=== PATIENT | female | born 1990 | race Caucasian/White ===

== ENCOUNTER 2016-12-08 18:37 | Emergency (ER) | payer SELFPAY ==
[2016-12-08 19:30] LABS: URINE BILIRUBIN NEGATIVE (NEGATIVE); URINE BLOOD MODERATE (NEGATIVE); URINE COLOR YELLOW; URINE GLUCOSE (UA) NEGATIVE (NEGATIVE); URINE KETONE NEGATIVE (NEGATIVE); URINE LEUKOCYTE ESTERASE MODERATE (NEGATIVE); URINE NITRITE POSITIVE (NEGATIVE); URINE PROTEIN NEGATIVE (NEGATIVE); URINE UROBILINOGEN 0.2 E.U./dL (0.20 - 1.00)
[2016-12-08 19:34] LABS: URINE APPEARANCE CLOUDY
[2016-12-08 19:35] LABS: URINE BACTERIA 3+
[2016-12-08] MEDS ORDERED: KETOROLAC 30 MG/ML VIAL IVP ONE (19:41)
[2016-12-08] MEDS ORDERED: 0.9 % SODIUM CHLORIDE 1,000 ML BAG IV ONE (19:41)
[2016-12-08] MEDS ORDERED: ONDANSETRON HCL IV 4 MG/2 ML VIAL IV ONE (19:41)
[2016-12-08 20:09] LABS: BASO % 0.1 % (0-6); EOS % 3.3 % (0-6); GRAN % 72.7 % (47-80); HEMATOCRIT 43.9 % (35.0-47.0); HEMOGLOBIN 14.4 gm/dl (11.6-16.0); LYMPH % 17.4 % (16-45); MEAN CELL VOLUME 91.5 fl (81-97); MEAN CORPUSCULAR HGB CONC 32.8 g/dl (32-36); MEAN PLATELET VOLUME 10.7 fl (7.4-10.4); MONO % 6.5 % (0-9); PLATELET COUNT 177 K/uL (130-400); RED CELL DISTRIBUTION WIDTH 13.7 % (11.5-14.5); WHITE BLOOD COUNT W/O DIFF 8.9 K/uL (4.2-12.2)
[2016-12-08] MEDS ORDERED: CIPROFLOXACIN LACTATE/D5W 400 MG/200 ML BAG IVPB ONE (20:12)
[2016-12-08 20:20] LABS: ALB/GLOB RATIO 1.2 (1.1-1.8); ALKALINE PHOSPHATASE 79 U/L (38-126); ALT/SGPT 26 U/L (9-52); AST/SGOT 15 U/L (14-36); BILIRUBIN,TOTAL 0.58 mg/dL (0.2-1.3); BLOOD UREA NITROGEN 7 mg/dL (7-17); CREATININE 0.9 mg/dL (0.52-1.04); EST GLOMERULAR FILTRATION RATE > 60 ml/min; GLUCOSE,RANDOM 95 mg/dL (70-110); TOTAL PROTEIN 7.4 gm/dL (6.3-8.2)
[2016-12-08] MEDS ORDERED: HYDROMORPHONE HCL 1 MG/ML CPJ IVP ONE (20:43)
--- NOTE | 2016-12-08 22:08 | Emergency Department Record ---
History of Present Illness - General Chief complaint: Vomiting Stated complaint: VOMITING,PAIN WHEN URINATING Time Seen by Provider: 12/08/16 19:35 Source: Patient Mode of Arrival: Ambulatory Limitations: No limitations - History of Present Illness Initial comments: pt has rlq pain w nausea and vomiting. MD complaint: Abdominal pain, Nausea, Vomiting Onset/Timin -: Days(s) Associated Abdominal Pain: Yes Location: RLQ Radiation: None Severity: Mild Quality: Other Consistency: Constant Improves with: None Worsens with: Vomiting Associated Symptoms: Nausea/vomiting - Related Data Home Medications Medication Instructions Recorded Confirmed Last Taken Hydroxyzine Pamoate [Vistaril] 150 mg PO BID 02/22/15 02/22/15 02/22/15 Naltrexone HCl [Depade] 50 mg PO BID 02/22/15 02/22/15 02/22/15 Naproxen [Naprosyn] 500 mg PO Q12H PRN 02/22/15 02/22/15 Unknown Propranolol HCl [Inderal] 10 mg PO BID 02/22/15 02/22/15 02/22/15 Quetiapine Fumarate [Seroquel] 300 mg PO QHS 02/22/15 02/22/15 02/21/15 Sertraline HCl [Zoloft] 100 mg PO DAILY 02/22/15 02/22/15 02/22/15 Previous Rx's Medication Instructions Recorded Sulfamethoxazole/Trimethoprim 1 each PO BID #14 tablet 12/08/16 [Bactrim Ds Tablet] Allergies Allergy/AdvReac Type Severity Reaction Status Date / Time NO KNOWN DRUG ALLERGY Allergy Uncoded 10/29/13 10:13 Travel Screening - Travel/Exposure Within Last 30 Days Have you traveled within the last 30 days?: No - Travel/Exposure Within Last Year Have you traveled outside the [place] in the last year?: No - Additonal Travel Details Have you been exposed to anyone with a communicable illness?: No - Travel Symptoms Symptom Screening: None Review of Systems Reviewed: No additional complaints except as noted below Constitutional: Reports: As per HPI. Denies: Chills, Fever, Malaise, Night sweats, Weakness, Weight change Eyes: Reports: As per HPI. Denies: Eye discharge, Eye pain, Photophobia, Vision change ENT: Reports: As per HPI. Denies: Congestion, Dental pain, Ear pain, Epistaxis , Hearing loss, Throat pain Respiratory: Reports: As per HPI. Denies: Cough, Dyspnea, Hemoptysis, Stridor, Wheezes Cardiovascular: Reports: As per HPI. Denies: Arrhythmia, Chest pain, Dyspnea on exertion, Edema, Murmurs, Orthopnea, Palpitations, Paroxysmal nocturnal dyspnea, Rheumatic Fever, Syncope Endocrine: Reports: As per HPI. Denies: Fatigue, Heat or cold intolerance, Polydipsia, Polyuria Gastrointestinal: Reports: As per HPI. Denies: Abdominal pain, Constipation, Diarrhea, Hematemesis, Hematochezia, Melena, Nausea, Vomiting Genitourinary: Reports: As per HPI. Denies: Abnormal menses, Discharge, Dyspareunia, Dysuria, Frequency, Hematuria, Incontinence, Retention, Urgency Musculoskeletal: Reports: As per HPI. Denies: Arthralgia, Back pain, Gout, Joint swelling, Myalgia, Neck pain Skin: Reports: As per HPI. Denies: Bruising, Change in color, Change in hair/ nails, Lesions, Pruritus, Rash Neurological: Reports: As per HPI. Denies: Abnormal gait, Confusion, Headache, Numbness, Paresthesias, Seizure, Tingling, Tremors, Vertigo, Weakness Psychiatric: Reports: As per HPI. Denies: Anxiety, Auditory hallucinations, Depression, Homicidal thoughts, Suicidal thoughts, Visual hallucinations Hematological/Lymphatic: Reports: As per HPI. Denies: Anemia, Blood Clots, Easy bleeding, Easy bruising, Swollen glands Past Medical History - SOCIAL HISTORY Smoking Status: Current every day smoker Alcohol Use: Heavy Alcohol Use Comment: formerly a heavy drinker Drug Use: None - RESPIRATORY Hx Respiratory Disorders: Yes Hx Asthma: Yes - CARDIOVASCULAR Hx Cardio Disorders: No - NEURO Hx Neuro Disorders: No - GI Hx GI Disorders: Yes Hx Crohn's Disease: Yes (diagnosed 2 mos ago) - Hx Genitourinary Disorders: No - ENDOCRINE Hx Endocrine Disorders: No - MUSCULOSKELETAL Hx Musculoskeletal Disorders: Yes - PSYCH Hx Psych Problems: Yes Hx Anxiety: Yes Hx Depression: Yes Comment:: PTSD; Borderline personality disorder; Borderline schizophrenia - HEMATOLOGY/ONCOLOGY Hx Hematology/Oncology Disorders: No Family Medical History Any Significant Family History?: Yes Hx Cancer: Father Hx Heart Disease: Father, Grandparents Physical Exam - General General Appearance: Alert, Oriented x3, Cooperative, Mild distress - Head Head exam: Normal inspection - Eye Eye exam: Normal appearance, PERRL, EOMI Pupils: Normal accommodation - ENT ENT exam: Normal exam, Mucous membranes moist, Normal external ear exam, Normal orophraynx Ear exam: Normal external inspection. negative: External canal tenderness Nasal Exam: Normal inspection. negative: Discharge, Sinus tenderness Mouth exam: Normal external inspection, Tongue normal Teeth exam: Normal inspection. negative: Dental caries Throat exam: Normal inspection. negative: Tonsillar erythema, Tonsillar exudate - Neck Neck exam: Normal inspection, Full ROM. negative: Tenderness - Respiratory Respiratory exam: Normal lung sounds bilaterally. negative: Respiratory distress - Cardiovascular Cardiovascular Exam: Regular rate, Normal rhythm, Normal heart sounds - GI/Abdominal GI/Abdominal exam: Soft, Normal bowel sounds, Tenderness - Rectal Rectal exam: Deferred - exam: Deferred - Extremities Extremities exam: Normal inspection, Full ROM, Normal capillary refill. negative: Tenderness - Back Back exam: Reports: Normal inspection, Full ROM. Denies: Muscle spasm, Rash noted, Tenderness - Neurological Neurological exam: Alert, CN II-XII intact, Normal gait, Oriented X3 - Psychiatric Psychiatric exam: Normal affect, Normal mood - Skin Skin exam: Dry, Intact, Normal color, Warm Course Vital Signs 12/08/16 12/08/16 12/08/16 19:12 20:35 21:08 Temperature 98.8 F Pulse Rate 79 Pulse Rate [ 63 55 L Pulse Ox Probe] Respiratory 20 20 20 Rate Blood Pressure 110/76 Blood Pressure 106/74 105/57 [Left Arm] Pulse Ox 99 99 99 - Reevaluation(s) Reevaluation #1: 12/08/16 22:03 pt feels better Medical Decision Making - Lab Data Result diagrams: 12/08/16 20:02 12/08/16 20:02 Lab Results 12/08/16 12/08/16 12/08/16 Range/Units 19:20 19:20 20:02 WBC 8.9 (4.2-12.2) K/uL RBC 4.80 (3.80-5.40) M/uL Hgb 14.4 (11.6-16.0) gm/dl Hct 43.9 (35.0-47.0) % MCV 91.5 (81-97) fl MCH 30.0 (27-33) pg MCHC 32.8 (32-36) g/dl RDW 13.7 (11.5-14.5) % Plt Count 177 (130-400) K/uL MPV 10.7 H (7.4-10.4) fl Gran % 72.7 (47-80) % Lymphocytes % 17.4 (16-45) % Monocytes % 6.5 (0-9) % Eosinophils % 3.3 (0-6) % Basophils % 0.1 (0-6) % Sodium (136-145) mmol/L Potassium (3.5-5.1) mmol/L Chloride (98-107) mmol/L Carbon Dioxide (22-30) mmol/L Anion Gap (7-16) BUN (7-17) mg/dL Creatinine (0.52-1.04) mg/dL Estimated GFR ml/min Random Glucose (70-110) mg/dL Calcium (8.5-10.1) mg/dL Total Bilirubin (0.2-1.3) mg/dL AST (14-36) U/L ALT (9-52) U/L Alkaline Phosphatase (38-126) U/L Total Protein (6.3-8.2) gm/dL Albumin (3.5-5.0) gm/dL Globulin (1.4-4.8) gm/dL Albumin/Globulin Ratio (1.1-1.8) Urine Color Yellow Urine Appearance Cloudy Urine pH 6.0 (5.0-8.0) Ur Specific Elizabeth 1.010 (1.002-1.030) Urine Protein Negative (NEGATIVE) Urine Glucose (UA) Negative (NEGATIVE) Urine Ketones Negative (NEGATIVE) Urine Blood Moderate (NEGATIVE) Urine Nitrite Positive H (NEGATIVE) Urine Bilirubin Negative (NEGATIVE) Urine Urobilinogen 0.2 (0.20 - 1.00) E.U./dL Ur Leukocyte Esterase Moderate H (NEGATIVE) Urine RBC 7 - 10 (NONE SEEN) Urine WBC Too numerous to cnt (0-2/hpf) U Non-Squamous Epi Cells 3 - 6 /hpf Urine Bacteria 3+ Urine HCG, Qual Negative (NEGATIVE) 12/08/16 Range/Units 20:02 WBC (4.2-12.2) K/uL RBC (3.80-5.40) M/uL Hgb (11.6-16.0) gm/dl Hct (35.0-47.0) % MCV (81-97) fl MCH (27-33) pg MCHC (32-36) g/dl RDW (11.5-14.5) % Plt Count (130-400) K/uL MPV (7.4-10.4) fl Gran % (47-80) % Lymphocytes % (16-45) % Monocytes % (0-9) % Eosinophils % (0-6) % Basophils % (0-6) % Sodium 143 (136-145) mmol/L Potassium 3.8 (3.5-5.1) mmol/L Chloride 109 H (98-107) mmol/L Carbon Dioxide 26.0 (22-30) mmol/L Anion Gap 8.0 (7-16) BUN 7 (7-17) mg/dL Creatinine 0.9 (0.52-1.04) mg/dL Estimated GFR > 60 ml/min Random Glucose 95 (70-110) mg/dL Calcium 9.1 (8.5-10.1) mg/dL Total Bilirubin 0.58 (0.2-1.3) mg/dL AST 15 (14-36) U/L ALT 26 (9-52) U/L Alkaline Phosphatase 79 (38-126) U/L Total Protein 7.4 (6.3-8.2) gm/dL Albumin 4.0 (3.5-5.0) gm/dL Globulin 3.4 (1.4-4.8) gm/dL Albumin/Globulin Ratio 1.2 (1.1-1.8) Urine Color Urine Appearance Urine pH (5.0-8.0) Ur Specific Elizabeth (1.002-1.030) Urine Protein (NEGATIVE) Urine Glucose (UA) (NEGATIVE) Urine Ketones (NEGATIVE) Urine Blood (NEGATIVE) Urine Nitrite (NEGATIVE) Urine Bilirubin (NEGATIVE) Urine Urobilinogen (0.20 - 1.00) E.U./dL Ur Leukocyte Esterase (NEGATIVE) Urine RBC (NONE SEEN) Urine WBC (0-2/hpf) U Non-Squamous Epi Cells /hpf Urine Bacteria Urine HCG, Qual (NEGATIVE) Disposition Disposition: Discharge Clinical Impression: Pyelonephritis Disposition: Home, Self-Care Condition: (1) Good Instructions: Acute Nausea and Vomiting (ED), Kidney Infection (ED) Additional Instructions: follow up with family doctor. return sooner if worse. push fluids. Prescriptions: Sulfamethoxazole/Trimethoprim [Bactrim Ds Tablet] 1 each PO BID #14 tablet Forms: Patient Portal Access
--- NOTE | 2016-12-11 07:57 | CT SCAN REPORT ---
EXAM: CT SCAN ABDOMEN/PELVIS WO CONTRAST HISTORY: ABDOMINAL PAIN FOR A WEEK. TECHNIQUE: Axial CT scan of the abdomen and pelvis performed without oral or IV contrast. COMPARISON: CT abdomen and pelvis, 02/23/15. FINDINGS: No calcified gallstones seen within the gallbladder. Questionable tiny nonobstructing calculus, lower pole left kidney. No bladder calculus evident. Left ureter appears negative with no left ureteral calculus evident. No right ureteral calculus seen as well but the right ureter does appear to have a diffusely slightly thick-walled appearance with slight haziness surrounding portions of the right ureter. This could represent urinary tract infection on the right and clinical correlation suggested. Evaluation of the bowel and viscera is very limited without oral or IV contrast. Given this limitation, no definite hepatic, splenic, adrenal, pancreatic, or renal mass identified. Small amount of nonspecific free fluid in the pelvis. No appendicitis identified. No free intraperitoneal air identified. Very small periumbilical anterior abdominal wall hernia containing adipose tissue but no bowel. IMPRESSION: 1. QUESTIONABLE TINY NONOBSTRUCTING CALCULUS, LOWER POLE LEFT KIDNEY. 2. SLIGHTLY DILATED RIGHT URETER WITH SLIGHT THICKENING AND HAZINESS OF THE RIGHT URETERAL WALL SUGGESTING URINARY TRACT INFECTION ON THE RIGHT AND CLINICAL CORRELATION SUGGESTED. NO RIGHT-SIDED URINARY TRACT CALCULUS EVIDENT. 3. VERY SMALL PERIUMBILICAL ANTERIOR ABDOMINAL WALL HERNIA CONTAINING ADIPOSE TISSUE BUT NO BOWEL. 4. NO APPENDICITIS EVIDENT. NO FREE AIR IS SEEN. JOB NUMBER: [id number] [facility]
== END 2016-12-08 22:20 | disposition home or self-care (01) ==
LOC: ER 18:37
DX: N10 Acute pyelonephritis (principal); F60.3 Borderline personality disorder; F17.200 Nicotine dependence, unspecified, uncomplicated
CPT/HCPCS: 93041; 99284 ×2; 96365; 96375; 85025; 80053; 81001; 81025; 74176; J0744; J1885; J2405; J1170; J7030

== ENCOUNTER 2017-01-17 22:30 | Emergency (ER) | payer SELFPAY ==
--- NOTE | 2017-01-17 23:15 | Emergency Department Record ---
History of Present Illness - General Chief Complaint: Laceration(s) Stated Complaint: LAC ON FOOT Time Seen by Provider: 01/17/17 23:09 Source: Patient Mode of Arrival: Ambulatory - History of Present Illness Initial Commments: Immediately prior to arrival the patient dropped numerous silverware onto her left bare foot accidentally. A steak n=knife cut her foot at the base of the 4th toe. Not UTD on tetanus. Onset/Timin -: Minutes(s) Place: Home Context: Accidental, Sharp object use Associated Symptoms: Pain - Related Data Patient Tetanus UTD (within 5 yrs): No Previous Rx's Medication Instructions Recorded Cephalexin [Keflex] 500 mg PO QID #39 cap 01/17/17 Allergies Allergy/AdvReac Type Severity Reaction Status Date / Time NO KNOWN DRUG ALLERGY Allergy Uncoded 10/29/13 10:13 Travel Screening - Travel/Exposure Within Last 30 Days Have you traveled within the last 30 days?: No Review of Systems Reviewed: No additional complaints except as noted below Constitutional: Reports: As per HPI. Denies: Chills, Fever, Malaise, Night sweats, Weakness, Weight change Eyes: Reports: As per HPI. Denies: Eye discharge, Eye pain, Photophobia, Vision change ENT: Reports: As per HPI. Denies: Congestion, Dental pain, Ear pain, Epistaxis , Hearing loss, Throat pain Respiratory: Reports: As per HPI. Denies: Cough, Dyspnea, Hemoptysis, Stridor, Wheezes Cardiovascular: Reports: As per HPI. Denies: Arrhythmia, Chest pain, Dyspnea on exertion, Edema, Murmurs, Orthopnea, Palpitations, Paroxysmal nocturnal dyspnea, Rheumatic Fever, Syncope Endocrine: Reports: As per HPI. Denies: Fatigue, Heat or cold intolerance, Polydipsia, Polyuria Gastrointestinal: Reports: As per HPI. Denies: Abdominal pain, Constipation, Diarrhea, Hematemesis, Hematochezia, Melena, Nausea, Vomiting Genitourinary: Reports: As per HPI. Denies: Abnormal menses, Discharge, Dyspareunia, Dysuria, Frequency, Hematuria, Incontinence, Retention, Urgency Musculoskeletal: Reports: As per HPI. Denies: Arthralgia, Back pain, Gout, Joint swelling, Myalgia, Neck pain Skin: Reports: As per HPI. Denies: Bruising, Change in color, Change in hair/ nails, Lesions, Pruritus, Rash Neurological: Reports: As per HPI. Denies: Abnormal gait, Confusion, Headache, Numbness, Paresthesias, Seizure, Tingling, Tremors, Vertigo, Weakness Psychiatric: Reports: As per HPI. Denies: Anxiety, Auditory hallucinations, Depression, Homicidal thoughts, Suicidal thoughts, Visual hallucinations Hematological/Lymphatic: Reports: As per HPI. Denies: Anemia, Blood Clots, Easy bleeding, Easy bruising, Swollen glands Past Medical History - SOCIAL HISTORY Smoking Status: Current every day smoker Alcohol Use: None Drug Use: None - RESPIRATORY Hx Respiratory Disorders: Yes Hx Asthma: Yes - CARDIOVASCULAR Hx Cardio Disorders: No - NEURO Hx Neuro Disorders: No - GI Hx GI Disorders: Yes Hx Crohn's Disease: Yes (diagnosed 2 mos ago) - Hx Genitourinary Disorders: No - ENDOCRINE Hx Endocrine Disorders: No - MUSCULOSKELETAL Hx Musculoskeletal Disorders: Yes - PSYCH Hx Psych Problems: Yes Hx Anxiety: Yes Hx Depression: Yes Comment:: PTSD; Borderline personality disorder; Borderline schizophrenia - HEMATOLOGY/ONCOLOGY Hx Hematology/Oncology Disorders: No Family Medical History Any Significant Family History?: Yes Hx Cancer: Father Hx Heart Disease: Father, Grandparents Physical Exam - General General Appearance: Alert, Oriented x3, Cooperative, No acute distress - Head Head exam: Normal inspection - Eye Eye exam: Normal appearance, PERRL Pupils: Normal accommodation - ENT ENT exam: Normal exam, Mucous membranes moist, Normal external ear exam, Normal orophraynx, TM's normal bilaterally Ear exam: Normal external inspection. negative: External canal tenderness Nasal Exam: Normal inspection. negative: Discharge, Sinus tenderness Mouth exam: Normal external inspection, Tongue normal Teeth exam: Normal inspection. negative: Dental caries Throat exam: Normal inspection. negative: Tonsillar erythema, Tonsillar exudate - Neck Neck exam: Normal inspection, Full ROM. negative: Tenderness - Respiratory Respiratory exam: Normal lung sounds bilaterally. negative: Respiratory distress - Cardiovascular Cardiovascular Exam: Regular rate, Normal rhythm, Normal heart sounds - GI/Abdominal GI/Abdominal exam: Soft, Normal bowel sounds. negative: Tenderness - Rectal Rectal exam: Deferred - exam: Deferred - Extremities Extremities exam: Normal inspection, Full ROM, Normal capillary refill. negative: Tenderness Image of Feet: 1 - 3mm laceration to base of 4th toe dorsally left foot. - Back Back exam: Reports: Normal inspection, Full ROM. Denies: Muscle spasm, Rash noted, Tenderness - Neurological Neurological exam: Alert, Normal gait, Oriented X3, Reflexes normal - Psychiatric Psychiatric exam: Normal affect, Normal mood - Skin Skin exam: Dry, Intact, Normal color, Warm Course Vital Signs 01/17/17 22:38 Temperature 98.1 F Pulse Rate 74 Respiratory 16 Rate Blood Pressure 115/78 Pulse Ox 97 - Reevaluation(s) Reevaluation #1: ROM of toes intact fully--no clinical evidence of tendon laceration, no FB in wound. 01/17/17 23:20 Medical Decision Making - Management Options MDM Management: No Additional Work-up Planned Disposition Disposition: Discharge Clinical Impression: Laceration of foot Qualifiers: Encounter type: initial encounter Laterality: left Qualified Code(s): S91.312A - Laceration without foreign body, left foot, initial encounter Disposition: Home, Self-Care Condition: (1) Good Instructions: Laceration (ED), Acute Wound Care (ED) Additional Instructions: Keep clean and dry. Keflex as directed until gone. Tylenol or ibuprofen as directed as needed for pain. Prescriptions: Cephalexin [Keflex] 500 mg PO QID #39 cap Forms: Patient Portal Access Quality - Quality Measures Quality Measures: N/A - Blood Pressure Screening Blood Pressure Classification: Normal BP Reading Systolic Measurement: 115 Diastolic Measurement: 78 Screening for High Blood Pressure: < Normal BP, F/U Not Required > [[id number]] Normal BP Follow-up Interventions: No follow-up required
[2017-01-17] MEDS ORDERED: ACETAMINOPHEN 500 MG TABLET PO ONE (23:17)
[2017-01-17] MEDS ORDERED: CEPHALEXIN 500 MG CAPSULE PO STA (23:17)
[2017-01-17] MEDS ORDERED: Diph,Pert(Acell),Tet Vac 0.5 ML SYR IM ONE (23:18)
--- NOTE | 2017-01-18 11:20 | RADIOLOGY REPORT ---
EXAM: LEFT FOOT HISTORY: INJURY. TECHNIQUE: Three views of the left foot were obtained. Comparison: None. Encounter: Initial. FINDINGS: Negative for fracture or dislocation. The soft tissues are unremarkable. The joint spaces are preserved. IMPRESSION: NEGATIVE LEFT FOOT EXAMINATION. JOB NUMBER: [id number] [facility]
== END 2017-01-17 23:40 | disposition home or self-care (01) ==
LOC: ER 22:30
DX: S91.312A Laceration without foreign body, left foot, initial encounter (principal); W26.8XXA Contact with other sharp object(s), not elsewhere classified, initial encounter
CPT/HCPCS: 90715; 99283